=== PATIENT | male | born 1985 | race Caucasian/White ===

== ENCOUNTER 2021-10-12 17:49 | Emergency (ER) | payer MEDICAID ==
[~2021-10-12] VITALS: Ht 172.7 cm; Wt 104.3 kg
[2021-10-12 17:58] VITALS: BP 167/104
--- NOTE | 2021-10-12 18:27 | NUR ---
RAD AT PATIENT BEDSIDE
--- NOTE | 2021-10-12 18:30 | NUR ---
36/M BIB SELF WITH C/O RIGHT ANKLE AND RIGHT 5TH DIGIT PAIN AND SWELLING SINCE YESTERDAY. PATIENT STATES HE "ROLLED" HIS ANKLE YESTERDAY WHILE WALKING DOWN THE STAIRS. PATIENT REPORTS TAKING PAIN MEDICATION WITH MILD RELIEF. DENIES NUMBNESS OR TINGLING.
[2021-10-12] MEDS ORDERED: NAPR-54 PO (19:05)
--- NOTE | 2021-10-12 19:27 | NUR ---
Pt report given to ALVIN GUDINO. Transfer of care at this time.
--- NOTE | 2021-10-12 19:38 | NUR ---
RECEIVED REPORT FORM MILLIE HEAD OF [employer] [employer]PART[facility] DAY NURSE AT BEDSIDE FOR [id number] OF CARE, PT LYING IN BED SPLINT APPLIED. HE IS WAITING FOR DISCHARGE.
== END 2021-10-12 21:12 | disposition home or self-care (01) ==
LOC: MED 17:49
DX: S92.351A Displaced fracture of fifth metatarsal bone, right foot, initial encounter for closed fracture (principal); Z79.1 Long term (current) use of non-steroidal anti-inflammatories (NSAID); Z91.040 Latex allergy status; X50.1XXA Overexertion from prolonged static or awkward postures, initial encounter; Y93.01 Activity, walking, marching and hiking; Y92.89 Other specified places as the place of occurrence of the external cause; Y99.8 Other external cause status
CPT/HCPCS: 29515; 73610; 73630; 99284; Q0092

== ENCOUNTER 2022-05-24 16:23 | Emergency (ER) | payer MEDICAID, OTHER ==
[~2022-05-24] VITALS: Ht 172.7 cm; Wt 108.9 kg
[~2022-05-24 16:23] MED LIST: NAPR-54 PO
[2022-05-24 16:25] VITALS: BP 137/100
--- NOTE | 2022-05-24 16:31 | NUR ---
PT SUNDAR CANTRELL, TO BED 08.
--- NOTE | 2022-05-24 16:52 | NUR ---
MD LEUNG AT BEDSIDE FOR EVALUATION
[2022-05-24] MEDS ORDERED: diazePAM 5 MG TAB PO ONE (17:00)
--- NOTE | 2022-05-24 17:00 | NUR ---
37YO MALE PT BIBA C/O ALCOHOL WITHDRAWAL [id number]. PT STATES BEING RELEASED FROM [facility] TODAY AND HAVING SYMPTOMS START SOON AFTER. REPORTS LAST DRINK ON TUESDAY. UPON ARRIVAL PT DIAPHORETIC AND RESTLESS. STATES BODY PAIN WHEN EXPERIENCING CHILLS. DENIES N/V/D, CHEST PAIN OR SOB. PT AAOX4, RESPIRATIONS EVEN AND UNLABORED. ON [employer]IST. HX:HTN NKA
[2022-05-24] MEDS ORDERED: LIB25 PO ×2 (18:02→18:07)
[2022-05-24 18:14] VITALS: BP 135/82
--- NOTE | 2022-05-24 18:14 | NUR ---
Patient discharged with v/s stable. Written and verbal after care instructions FOR ALCOHOL WITHDRAWAL given and explained. Patient verbalized understanding. Ambulatory with steady gait. All questions addressed prior to discharge. Advised to follow up with PMD.
== END 2022-05-24 18:14 | disposition home or self-care (01) ==
LOC: MED 16:23
DX: F10.239 Alcohol dependence with withdrawal, unspecified (principal); R07.89 Other chest pain; Y90.9 Presence of alcohol in blood, level not specified
CPT/HCPCS: 99283

== ENCOUNTER 2022-09-29 08:17 | Emergency (ER) | payer OTHER ==
[~2022-09-29] VITALS: Ht 175.3 cm; Wt 106.6 kg
[2022-09-29 08:22] VITALS: BP 143/101
--- NOTE | 2022-09-29 08:40 | NUR ---
SEEN AND EVALUATED BY , MSE COMPLETED.
--- NOTE | 2022-09-29 08:40 | NUR ---
ASSUMED PATIENT CARE, NURSING ASSESSMENT COMPLETED.
[2022-09-29] MEDS ORDERED: methocarbamoL 500 MG TAB PO ONE (08:45)
[2022-09-29] MEDS ORDERED: oxyCODONE/APAP 5/325 MG 1 TAB TAB PO ONE (08:45)
[2022-09-29] MEDS ORDERED: predniSONE 20 MG TAB PO ONE (08:45)
[2022-09-29] MEDS ORDERED: LIDOCAINE 5% 1 EA PATCH TP SCH (08:45)
[2022-09-29] MEDS ORDERED: KETOROLAC 30 MG/ML VIAL IM ONE (08:45)
--- NOTE | 2022-09-29 09:14 | NUR ---
PATIENT REFUSING PERCOCET AT THIS TIME, AWARE.
[2022-09-29] MEDS ORDERED: PRED20TA5 PO (10:03)
[2022-09-29] MEDS ORDERED: LID5T TP (10:03)
[2022-09-29] MEDS ORDERED: METH-1681 PO (10:03)
[2022-09-29] MEDS ORDERED: NAPR-54 PO (10:03)
--- NOTE | 2022-09-29 10:36 | NUR ---
DISPO AND MEDICAL DECISION MAKING DC HOME WITH E-RX AND AFTERCARE INSTRUCTIONS. PATIENT UNDERSTANDING INSTRUCTIONS ACCORDINGLY. VS WNL, PAIN IMPROVED.
[2022-09-29 10:42] VITALS: BP 135/90
== END 2022-09-29 10:36 | disposition home or self-care (01) ==
LOC: MED 08:17
DX: M54.50 Low back pain, unspecified (principal); I25.10 Atherosclerotic heart disease of native coronary artery without angina pectoris
CPT/HCPCS: 96372; 99284; J1885; J7512